=== PATIENT | male | born 1945 | race Asian ===

== ENCOUNTER 2020-09-25 | Emergency (ER) | payer OTHER ==
[~2020-09-25] VITALS: Ht 182.9 cm; Wt 72.6 kg
[2020-09-25 00:09] VITALS: BP 129/76; TEMP 98.9
[2020-09-25 01:03] LABS: PLATELET COUNT 169 K/uL (142-355)
[2020-09-25 01:12] LABS: POTASSIUM 4.8 mmol/L (3.6-5.2)
[2020-09-25] MEDS ORDERED: QUET200T28 PO (11:04)
[2020-09-25] MEDS ORDERED: DULCOLAX M400 MG/5 M PO (11:07)
[2020-09-25] MEDS ORDERED: TIROSINT50 MCG PO (11:09)
[2020-09-25] MEDS ORDERED: POLY GLYCOL3350 MG XX (11:10)
[2020-09-25] MEDS ORDERED: FERROUS SULF325 M1 PO (11:22)
[2020-09-25] MEDS ORDERED: BOOST PLUS PO (11:23)
[2020-09-25] MEDS ORDERED: XELPROS0.005 % IO (11:24)
[2020-09-25] MEDS ORDERED: LORA1TAB17 PO (11:25)
== END 2020-09-25 01:37 | disposition still patient (30) ==
LOC: ED 00:09 → EDSEX 00:09 → ED 01:37
PROVIDERS: Hospitalist
DX: F03.91 Unspecified dementia, unspecified severity, with behavioral disturbance (principal); Z11.52 Encounter for screening for COVID-19; Z04.6 Encounter for general psychiatric examination, requested by authority
CPT/HCPCS: 36415; 80053; 85027; 87635; 93005; 96372; 99283; J1200; J1630; U0003